=== PATIENT | female | born 1950 | race Caucasian/White ===

== ENCOUNTER → 2017-05-17 16:50 | Outpatient (CLI) | payer MEDICARE, MEDICAID ==
[2010-10-21 09:17] VITALS: BMI 36.9
== END | disposition home or self-care (01) ==
LOC: D.MAMMO 09:15
DX: Z12.31 Encounter for screening mammogram for malignant neoplasm of breast (principal)

== ENCOUNTER 2018-07-26 08:00 | Outpatient (CLI) | payer MEDICARE, MEDICAID ==
[2010-10-21 09:17] VITALS: BMI 36.9
== END 2018-07-26 09:00 | disposition home or self-care (01) ==
LOC: D.MAMMO 08:00
DX: Z12.31 Encounter for screening mammogram for malignant neoplasm of breast (principal)

== ENCOUNTER 2020-05-10 10:13 | Day surgery (SDC) | payer MEDICARE, MEDICAID ==
[~2020-05-10] VITALS: Ht 154.9 cm; Wt 93.6 kg
[2020-05-10 10:56] LABS: HEMATOCRIT 31.1 % (36.0-48.0); HEMOGLOBIN 9.6 g/dL (12-16); MCH 28.8 pg (26.0-34.0); MCHC 30.9 g/dL (31.0-37.0); MCV 93.4 fL (80.0-100.0); MEAN PLATELET VOLUME 9.2 fL (7.4-10.4); RBC 3.33 10x6/uL (4.00-5.40); RDW 15.4 % (11.5-14.5)
[2020-05-10 11:08] LABS: ANION GAP 8.6 mmol/L (8-16); CALCIUM 8.1 mg/dL (8.5-10.1); CREATININE - SERUM 1.2 mg/dL (0.6-1.3); POTASSIUM - SERUM 3.6 mmol/L (3.5-5.1)
[2020-05-10] MEDS ORDERED: NORTRIPTYLINE H50 MG PO (11:14)
[2020-05-10] MEDS ORDERED: CARDIZEM60 MG PO (11:14)
[2020-05-10] MEDS ORDERED: K-DUR20 MEQ PO (11:15)
[2020-05-10] MEDS ORDERED: LONITEN2.5 MG PO (11:15)
[2020-05-10] MEDS ORDERED: PREVACID15 MG PO (11:15)
[2020-05-10] MEDS ORDERED: COREG25 MG PO (11:15)
[2020-05-10] MEDS ORDERED: FUROSEMIDE20 MG PO (11:15)
[2020-05-10] MEDS ORDERED: ISOSORBIDE MONO60 M1 PO (11:16)
[2020-05-10] MEDS ORDERED: CARDURA8 MG PO (11:16)
[2020-05-10] MEDS ORDERED: GLUCOPHAGE500 MG PO (11:16)
[2020-05-10] MEDS ORDERED: VALIUM5 MG PO (11:17)
[2020-05-10] MEDS ORDERED: HCTZ25 MG PO (11:17)
[2020-05-10] MEDS ORDERED: CRESTOR20 MG PO (11:17)
[2020-05-10] MEDS ORDERED: NITROQUICK0.4 MG SL (11:18)
[2020-05-10] MEDS ORDERED: BAYER CHEWABLE81 MG PO (11:19)
[2020-05-10 11:29] VITALS: Ht 154.9 cm; Wt 93.6 kg
--- NOTE | 2020-05-10 14:14 | NUR ---
1256 IV DC'D. CATHETER TIP INTACT. NO BLEEDING AT SITE. WRAPPED IV SITE WITH COTTON BALL AND COBAN.
--- NOTE | 2020-05-11 08:32 | OP ---
PATIENT NAME: MARJORIE IRIZARRY MEDICAL RECORD: [id number] :48 LOCATION:[facility] ADMISSION DATE: SURGEON: KYLAH KULKARNI DO DATE OF OPERATION: 05/10/2020 PROCEDURE: EGD with biopsies. INDICATIONS FOR PROCEDURE: Anemia, heartburn, abnormal weight loss. SCOPE: Olympus video gastroscope. MEDICATIONS: Propofol 120 mg IV per anesthesia. ESTIMATED BLOOD LOSS: Minimal. COMPLICATIONS: None. FINDINGS: Informed consent was given. The patient was made comfortable with the above medication. After reaching an adequate level of sedation by slow IV push, the patient was placed on her left side. The endoscope was advanced under direct visualization through the mouth to the second portion of the duodenum with ease. The esophagus appeared normal in its entirety down to the GE junction. Cold forceps, biopsies were taken from the midesophagus to rule out the presence of eosinophils. At the GE junction, there were changes consistent with LA class A reflux-induced esophagitis. Cold forceps, biopsies were taken from the squamocolumnar junction to rule out the presence of Evans's mucosa. The endoscope was advanced beyond the GE junction into the stomach and retroflexed to view the cardia and fundus, which appeared normal. Throughout the body of the stomach as well as the antrum and prepyloric regions, there were some changes consistent with chronic gastritis, which consisted of erythema and congestion. Cold forceps, biopsies were taken from the antrum and incisura to submit for histopathology and to rule out the presence of H. pylori. The endoscope was advanced beyond the pylorus into the duodenum, which appeared normal to the second portion. Cold forceps, biopsies were taken randomly to submit for histopathology in light of the anemia and abdominal pain. The endoscope was withdrawn from the patient. The patient tolerated the procedure well and there were no complications. IMPRESSION: 1. LA class A reflux-induced esophagitis. 2. Mild chronic gastritis changes. PLAN AND RECOMMENDATIONS: 1. Discharge home when recovery parameters are met. 2. Follow up biopsy specimen results. 3. GERD diet and reflux precautions. 4. Continue current medications including lansoprazole 15 mg daily. 5. Right upper quadrant ultrasound to rule out gallbladder pathology. 6. Consider PIPIDA scan pending ultrasound results and also consider gastric emptying scan pending above workup. 7. Follow up in GI clinic in 8 weeks. TRANSINT:[id number] Voice Confirmation ID: [id number] DOCUMENT ID: [id number] OPERATIVE REPORT [id number] MARJORIE IRIZARRY NATHAN A DO at 0832 CC: [id number] DICTATION DATE: 05/10/201215 MEDICAL PRACTICE ADMINISTRATOR: 05/10/20 [address] [facility] 05/10/20 [facility] [address] [id number]
== END 2020-05-10 13:06 | disposition home or self-care (01) ==
LOC: D.OPS 10:13
PROVIDERS: Anesthesiology; ATTEND Internal Medicine Gastroenterology
DX: K21.9 Gastro-esophageal reflux disease without esophagitis (principal); K29.60 Other gastritis without bleeding; D64.9 Anemia, unspecified; R12 Heartburn; R63.4 Abnormal weight loss; E11.9 Type 2 diabetes mellitus without complications; I10 Essential (primary) hypertension; I51.9 Heart disease, unspecified; N28.9 Disorder of kidney and ureter, unspecified; Z86.010 Personal history of colon polyps; R10.9 Unspecified abdominal pain

== ENCOUNTER → 2020-05-12 08:32 | Outpatient (CLI) | payer MEDICARE ==
[2020-05-10 11:29] VITALS: BMI 39.0
[~2020-05-12 08:32] MED LIST: BAYER CHEWABLE81 MG PO; CARDIZEM60 MG PO; CARDURA8 MG PO; COREG25 MG PO; CRESTOR20 MG PO; FUROSEMIDE20 MG PO; GLUCOPHAGE500 MG PO; HCTZ25 MG PO; ISOSORBIDE MONO60 M1 PO; K-DUR20 MEQ PO; LONITEN2.5 MG PO; NITROQUICK0.4 MG SL; NORTRIPTYLINE H50 MG PO; PREVACID15 MG PO; VALIUM5 MG PO
== END | disposition home or self-care (01) ==
LOC: D.US 08:30
PROVIDERS: ATTEND Internal Medicine Gastroenterology
DX: R10.11 Right upper quadrant pain (principal)